=== PATIENT | female | born 1985 | race Caucasian/White ===

== ENCOUNTER 2022-10-23 23:14 | Emergency (ER) | payer OTHER ==
[2022-10-24 00:12] VITALS: BP 124/80; PULSE 87; RESP 18; TEMP 97.7; BMI 28.9
[2022-10-24] MEDS ORDERED: METHOCARBAMOL 500 MG TABLET PO ONE (00:28)
[2022-10-24] MEDS ORDERED: KETOROLAC TROMETHAMINE 30 MG/1 ML VIAL IM ONE (00:28)
[2022-10-24] MEDS ORDERED: METHOCARBAMOL 500 MG TABLET ONE (00:29)
[2022-10-24] MEDS ORDERED: KETOROLAC TROMETHAMINE 30 MG/1 ML VIAL ONE ×2 (00:29)
== END 2022-10-24 00:38 | disposition home or self-care (01) ==
LOC: JERFT 23:14 → JER 23:14 → JERFT 10-24 00:38
DX: M62.830 Muscle spasm of back (principal)
CPT/HCPCS: 99283-25

== ENCOUNTER 2024-08-23 22:39 | Emergency (ER) | payer BC, OTHER ==
[2024-08-23 22:44] VITALS: BP 115/62; PULSE 83; RESP 18; TEMP 98.4; BMI 27.4
[2024-08-23] MEDS ORDERED: CEPHALEXIN MONOHYDRATE 500 MG CAPSULE (UD) ONE (23:36)
[2024-08-23] MEDS ORDERED: ACETAMINOPHEN 500 MG TABLET (FP) ONE (23:36)
[2024-08-23] MEDS: CEPHALEXIN MONOHYDRATE 500 MG CAPSULE (UD) PO ONE (23:38)
[2024-08-23] MEDS: ACETAMINOPHEN 500 MG TABLET (FP) PO ONE (23:38)
== END 2024-08-23 23:39 | disposition home or self-care (01) ==
LOC: JER 22:39
DX: T63.441A Toxic effect of venom of bees, accidental (unintentional), initial encounter (principal); L29.9 Pruritus, unspecified
CPT/HCPCS: 99283-25